=== PATIENT | female | born 1995 | race Caucasian/White ===

== ENCOUNTER 2016-07-13 15:13 | Emergency (ER) | payer OTHER ==
[~2016-07-13] VITALS: Ht 152.4 cm; Wt 86.2 kg
[2016-07-13 15:21] VITALS: BP 126/87
[2016-07-13] MEDS ORDERED: AUGMENTIN 875-1 EACH PO (16:44)
[2016-07-13] MEDS ORDERED: PERCOCET 5-3251 EACH PO (16:44)
--- NOTE | 2016-07-13 16:45 | ED ANIMAL BITE/WOUND CHECK ---
History of Present Illness General Chief Complaint: Animal/Insect Bite Stated Complaint: ANIMAL BITE Source: patient Exam Limitations: no limitations Vital Signs & Intake/Output Vital Signs & Intake/Output Vital Signs Date Time Temp Pulse Resp B/P Pulse O2 O2 Flow FiO2 Ox Delivery Rate 07/13 1521 97.2 105 16 126/87 98 Room Air Allergies Coded Allergies: No Known Allergies (07/13/16) Reconcile Medications Amoxicillin/Potassium Clav (Augmentin 875-125 Tablet) 875 MG-125 MG TABLET 1 TAB PO BID cat bite Oxycodone HCl/Acetaminophen (Percocet 5-325 MG Tablet) 5 MG-325 MG TABLET 1-2 TAB PO Q6P PRN PAIN Triage Note: PT STATES SHE WAS RESTRAINING A CAT AT THE ANIMAL CLINIC. PT STATES THE CAT BIT HER FINGER ON HER LEFT POINTER FINGER. PT STATES SHE WILL CALL HER WORK TO SEE IF PT IS UTD WITH IT'S SHOTS. Triage Nurses Notes Reviewed? yes Onset: Abrupt Duration: day(s):, constant, continues in ED Timing: recent history Injury Environment: home Is Injury an Animal Bite? Yes Animal Type: cat No Modifying Factors: none : No Patient currently breastfeeds: No HPI: 20-year-old female comes into emergency room for further evaluation of Bite to her left index finger. [facility]. Is up-to-date on rabies vaccine. She is up-to-date on her tetanus shot. Wound was already irrigated. Sharp throbbing pain. Continuous. Nonradiating. Denies any other associated symptoms. (JACLYN ZHAO) Past History Travel History Traveled to [place] past 21 day No Medical History Any Pertinent Medical History? none Surgical History Surgical History: non-contributory Psychosocial History What is your primary language Sami Tobacco Use: Current Daily Use Daily Tobacco Use Amount/Type: => 5 Cigarettes daily ETOH Use: occasional use Illicit Drug Use: denies illicit drug use Family History Hx Contributory? No (JACLYN ZHAO) Review of Systems Review of Systems Constitutional: Reports: no symptoms. EENTM: Reports: no symptoms. Respiratory: Reports: no symptoms. Cardiovascular: Reports: no symptoms. GI: Reports: no symptoms. Genitourinary: Reports: no symptoms. Musculoskeletal: Reports: see HPI. Skin: Reports: see HPI. Neurological/Psychological: Reports: no symptoms. Hematologic/Endocrine: Reports: no symptoms. Immunologic/Allergic: Reports: no symptoms. All Other Systems: Reviewed and Negative (JACLYN ZHAO) Physical Exam Physical Exam General Appearance: well developed/nourished, mild distress Head: atraumatic Eyes: Bilateral: normal appearance. Ears, Nose, Throat: normal ENT inspection, hearing grossly normal Neck: normal inspection Respiratory: no respiratory distress Back: normal inspection Extremities: normal range of motion Neurologic/Psych: awake, alert, oriented x 3, normal mood/affect Skin: intact, normal color, warm/dry Lymphatic: no anterior cervical milton (JACLYN ZHAO) Progress Differential Diagnosis: abscess, cellulitis, joint infection, tenosysnovitis Plan of Care: 07/13/2016 5:53:16 PM Patient clinically looks well. Nontoxic-appearing. Patient started on Augmentin. Ice rotating with warm compresses. Watch for signs of infection. Return if any other concerns. (JACLYN ZHAO) Departure Departure Disposition: HOME OR SELF CARE Condition: Stable Clinical Impression Primary Impression: Cat bite of finger Referrals: HARMAN TREJO MD PATIENT HAS NO PRIMARY CARE DR (PCP/Family) Additional Instructions: Take Augmentin as prescribed. Take Percocet as prescribed. Warm compresses over the area. return if Signs of infection such as redness swelling discharge fever chills. Return if any other concerns worsening symptoms. Follow-up with plastic surgeon if you have persistent symptoms. Please go over all results of today's visit with your primary care doctor. Contact your primary care doctor to let them know you were here in the emergency room. There may be nonspecific findings which may not be related to your visit today here in the emergency room but may require further evaluation and chronic monitoring by your primary care doctor. If you had a laceration today the chance of foreign body always remains. You should follow-up with your primary care doctor for recheck in 3-5 days for a wound check. If you had an x-ray done there is a chance that a fracture could have been missed on initial read and you should follow-up with your primary care doctor for repeat x-rays if symptoms persist. If your blood pressure was elevated here in the emergency room please have rechecked by her primary care doctor within the next 48 hours by your primary care doctor. If you were prescribed a narcotic here in the emergency room or any type of controlled substances you're not allowed to drive while taking this medication or operate any type of heavy machinery. Narcotics can make you feel lightheaded dizziness nausea and can cause constipation. You may need to oyster picker a stool softener. Thank you for choosing [facility] emergency room. Please return to the emergency room immediately if you have any other concerns worsening of symptoms. Departure Forms: Customer Survey Employee Industrial Accident General Discharge Information Prescriptions: Current Visit Scripts Amoxicillin/Potassium Clav (Augmentin 875-125 Tablet) 1 TAB PO BID #20 TAB Oxycodone HCl/Acetaminophen (Percocet 5-325 MG Tablet) 1-2 TAB PO Q6P PRN PAIN #15 TAB (JACLYN ZHAO) PA/BATTERY FILLER Co-Sign Statement Statement: ED Attending supervision documentation- [] I saw and evaluated the patient. I have also reviewed all the pertinent lab results and diagnostic results. I agree with the findings and the plan of care as documented in the PA's/BATTERY FILLER's documentation. x I have reviewed the ED Record and agree with the PA's/BATTERY FILLER's documentation. [] Additions or exceptions (if any) to the PAs/BATTERY FILLER's note and plan are summarized below: [] (ROXANA JOHNSON,YARELIS)
== END 2016-07-13 16:54 ==
LOC: ERH 15:13
DX: S61.251A Open bite of left index finger without damage to nail, initial encounter (principal); W55.01XA Bitten by cat, initial encounter
CPT/HCPCS: J3490

== ENCOUNTER 2017-07-14 09:55 | Emergency (ER) | payer OTHER ==
[~2017-07-14] VITALS: Ht 172.7 cm; Wt 86.2 kg
[~2017-07-14 09:55] MED LIST: AUGMENTIN 875-1 EACH PO; DOXYCYCLINE HY100 M2 PO; FLAGYL500 MG PO; HYDROCODON-ACE1 EAC2 PO; PERCOCET 5-3251 EACH PO
--- NOTE | 2017-07-14 10:00 | ED ANIMAL BITE/WOUND CHECK ---
History of Present Illness General Chief Complaint: Animal/Insect Bite Stated Complaint: RABIES VAC Source: patient, old records Exam Limitations: no limitations Vital Signs & Intake/Output Vital Signs & Intake/Output Vital Signs Date Time Temp Pulse Resp B/P B/P Pulse O2 O2 Flow FiO2 Mean Ox Delivery Rate 07/14 1020 97.8 94 20 117/74 96 Room Air Allergies Coded Allergies: amoxicillin (DIARRHEA 03/28/17) Reconcile Medications Amoxicillin/Potassium Clav (Augmentin 875-125 Tablet) 875 MG-125 MG TABLET 1 TAB PO BID cat bite Amoxicillin/Potassium Clav (Augmentin 875-125 Tablet) 875 MG-125 MG TABLET 1 TAB PO BID CELLULITIS Doxycycline Hyclate 100 MG CAPSULE 1 CAP PO BID CAT BITE Hydrocodone/Acetaminophen (Hydrocodon-Acetaminophen 5-325) 5 MG-325 MG TABLET 1-2 TAB PO Q4-6 PRN PRN PAIN Metronidazole (Flagyl) 500 MG TABLET 1 TAB PO BID CAT BITE DO NOT DRINK ALCOHOL WHILE TAKING THIS MEDIACTION Oxycodone HCl/Acetaminophen (Percocet 5-325 MG Tablet) 5 MG-325 MG TABLET 1-2 TAB PO Q6P PRN PAIN Triage Nurses Notes Reviewed? yes Onset: Abrupt Duration: better Timing: recent history Injury Environment: work Is Injury an Animal Bite? Yes Animal Type: cat Appearance of Animal: appeared well Animal Immunization Status: not immunized HPI: Patient is a 21-year-old female who presents emergency room in which old records also indicate that patient while at work in which she was prophylactically having her Receive rabies vaccines and prior to the administration of the vaccine she states that a dog startled her Which the cat subsequently bit patient to the right fifth digit of her hand where she was evaluated at [place] emergency room on July 05 patient received immunoglobin and rabies vaccines and was prescribed antibiotics of Augmentin where patient has been compliant with her symptoms patient returns to the emergency room 9 days later which she states that she missed her day 3 rabies vaccine due to work patient states that the swelling pain and inflammation of her right fifth digit has significantly improved and denies any fevers and is otherwise without complaints Patient states that the cat is acting normal with no erratic or aggressive behavior and has been quarantined at her house for the past 9 days Patient's tetanus status is up-to-date (Jean Paul RODRIGUEZ,Horace) Past History Medical History Any Pertinent Medical History? see below for history Neurological: NONE EENT: NONE Cardiovascular: NONE Respiratory: NONE Gastrointestinal: C-DIFF Hepatic: NONE Renal: NONE Musculoskeletal: NONE Endocrine: NONE Blood Disorders: NONE Cancer(s): NONE Surgical History Surgical History: non-contributory Psychosocial History What is your primary language Sinhala Family History Hx Contributory? No (Horace Melvin) Review of Systems Review of Systems Constitutional: Reports: no symptoms. EENTM: Reports: no symptoms. Respiratory: Reports: no symptoms. Cardiovascular: Reports: no symptoms. GI: Reports: no symptoms. Genitourinary: Reports: no symptoms. Musculoskeletal: Reports: see HPI. Skin: Reports: see HPI. Neurological/Psychological: Reports: no symptoms. Hematologic/Endocrine: Reports: no symptoms. Immunologic/Allergic: Reports: no symptoms. All Other Systems: Reviewed and Negative (Horace Melvin) Physical Exam Physical Exam General Appearance: no apparent distress, alert, comfortable Head: atraumatic Eyes: Bilateral: normal appearance. Ears, Nose, Throat: hearing grossly normal Neck: normal inspection Respiratory: normal breath sounds Peripheral Pulses: 2+ radial (R) Extremities: evidence of injury, no ligament instability Neurologic/Psych: no motor/sensory deficits, awake Skin: warm/dry Diagram Hands, Palmar: 1) 3 MM WELL HEALING PUNCTURE WOUND WITH ecchymotic hematoma 2) 4 mm well-healing ecchymotic hematoma with no surrounding erythema no warmth no tenderness 3) Full active range of motion noted with flexion and extension dermatomes intact no erythema no warmth no swelling (Horace Melvin) Progress Differential Diagnosis: abscess, cellulitis, joint infection, tenosysnovitis Plan of Care: Current Medications Sig/Irish Start time Last Medication Dose Stop Time Status Admin Rabies Vaccine 1 SYR ONCE ONE 07/14 1000 UNVr (Rabies (Vaccine) 07/14 1001 Inj (1ML)) Patient has improvement of symptoms due to the quarantine the cat showing normal behavior I discussed with patient that CBC would recommend that no further rabies vaccine after today to be warranted patient to continue antibiotics however will return to emergency with symptoms worsen (Horace Melvin) Departure Departure Disposition: HOME OR SELF CARE Condition: Stable Clinical Impression Primary Impression: Cat bite of finger Referrals: Patient Has No Primary Care Dr (PCP/Family) Additional Instructions: As discussed return to emergency room later this week for your rabies vaccine update continue previously prescribed medications, if symptoms worsen or if YOU develop any new concerning symptom return to emergency room, Departure Forms: Customer Survey General Discharge Information (Horace Melvin) PA/MANAGER SUPPLY CHAIN PLANNING Co-Sign Statement Statement: ED Attending supervision documentation- [] I saw and evaluated the patient. I have also reviewed all the pertinent lab results and diagnostic results. I agree with the findings and the plan of care as documented in the PA's/MANAGER SUPPLY CHAIN PLANNING's documentation. [X] I have reviewed the ED Record and agree with the PA's/MANAGER SUPPLY CHAIN PLANNING's documentation. [] Additions or exceptions (if any) to the PAs/MANAGER SUPPLY CHAIN PLANNING's note and plan are summarized below: [] (Pradip Aguilar DO)
[2017-07-14 10:20] VITALS: BP 117/74
== END 2017-07-14 10:51 ==
LOC: ERH 09:55
DX: S61.250A Open bite of right index finger without damage to nail, initial encounter (principal); W55.01XA Bitten by cat, initial encounter; Y92.9 Unspecified place or not applicable; Y93.9 Activity, unspecified
CPT/HCPCS: 90471